=== PATIENT | male | born 1985 | race Hispanic/Latino ===

== ENCOUNTER 2018-02-16 06:48 | Emergency (ER) | payer BC, SELFPAY | END 2018-02-16 13:56 | disposition home or self-care (01) | LOC: ERS 06:48 | DX: L03.116 Cellulitis of left lower limb (principal); B35.3 Tinea pedis; F17.290 Nicotine dependence, other tobacco product, uncomplicated | CPT/HCPCS: 99283 ==

== ENCOUNTER 2019-04-02 06:58 | Emergency (ER) | payer BC, SELFPAY ==
[2019-04-02 07:37] LABS: #Basophils 0.1 thou/uL (0.0-0.2); #Eosinphils 0.4 thou/uL (0.0-0.7); #Monocytes 0.6 thou/uL (0.11-0.59); #Neutrophils 3.7 thou/uL (1.40-6.50); %Eosinophils 5.7 % (0.0-10.0); %Lymphocytes 38.1 % (21.0-51.0); %Monocytes 7.9 % (0.0-10.0); %Neutrophils 47.3 % (42.0-75.0); Hemoglobin 15.2 g/dL (14.0-18.0); Mean Corpuscular Hemoglobin 30.2 pg (27.0-31.0); Mean Corpuscular Volume 88.7 fL (78.0-98.0); Mean Platelet Volume 7.7 fL (7.4-10.4); Platelet Count 337 thou/uL (130-400); RBC Distribution Width 12.1 % (11.5-14.5); Red Blood Cell (RBC) Count 5.03 mill/uL (4.70-6.10); White Blood Cell (WBC) Count 7.8 thou/uL (4.8-10.8)
== END 2019-04-02 08:34 | disposition home or self-care (01) ==
LOC: ERS 06:58
DX: K62.5 Hemorrhage of anus and rectum (principal); F17.210 Nicotine dependence, cigarettes, uncomplicated
CPT/HCPCS: 85025; 99283

== ENCOUNTER 2020-06-02 12:18 | Inpatient (IN) | payer BC ==
[2020-06-02 14:32] LABS: Red Blood Cell (RBC) Count 4.81 mill/uL (4.70-6.10); White Blood Cell (WBC) Count 17.9 thou/uL (4.8-10.8)
[2020-06-02 14:33] LABS: %Lymphocytes 19.2 % (21.0-51.0); %Neutrophils 70.6 % (42.0-75.0); Hemoglobin 14.2 g/dL (14.0-18.0); Mean Corpuscular HGB CONC 32.5 g/dL (32.0-36.0); Mean Corpuscular Hemoglobin 29.6 pg (27.0-31.0); Mean Corpuscular Volume 91.1 fL (78.0-98.0); Mean Platelet Volume 7.7 fL (7.4-10.4); Platelet Count 369 thou/uL (130-400); RBC Distribution Width 12.5 % (11.5-14.5)
[2020-06-02 14:34] LABS: #Basophils 0.1 thou/uL (0.0-0.2); #Eosinphils 0.2 thou/uL (0.0-0.7); #Lymphocytes 3.4 thou/uL (1.20-3.40); #Monocytes 1.5 thou/uL (0.11-0.59); #Neutrophils 12.6 thou/uL (1.40-6.50); %Basophils 0.5 % (0.0-1.0); %Eosinophils 1.1 % (0.0-10.0); %Monocytes 8.6 % (0.0-10.0)
[2020-06-02 14:38] LABS: Albumin 4.3 g/dL (3.5-5.0)
[2020-06-02 14:39] LABS: Calcium 9.6 mg/dL (7.8-10.44); Chloride 100 mmol/L (98-107); Globulin 4.2 g/dL (2.4-3.5); Glucose 97 mg/dL (70-105); Potassium 4.2 mmol/L (3.5-5.1); Protein, Total 8.5 g/dL (6.0-8.3); Sodium 136 mmol/L (136-145)
[2020-06-02 14:40] LABS: ALT (SGPT) 39 U/L (8-55); AST (SGOT) 35 U/L (5-34); Alkaline Phosphatase 74 U/L (40-110); Anion Gap 14 mmol/L (10-20); BUN (Urea Nitrogen) 15 mg/dL (8.9-20.6); Bilirubin, Total 0.5 mg/dL (0.2-1.2); Calc. Creatinine Clearance 0 mL/min (70-130); Carbon Dioxide 26 mmol/L (22-29); Estimated GFR-MDRD 87
[2020-06-02] MEDS ORDERED: Iopamidol-370 76% 500 ML 1 ML ONE (15:17)
--- NOTE | 2020-06-02 16:15 | RAD ---
CHEST 1 VIEW: Date: 06/02/2020 INDICATION: History of bright red blood in toilet with fevers, chills, nausea, and fatigue. COMPARISON: Prior dated 04/21/2018. FINDINGS: Lungs are clear. Heart size is normal. No acute osseous abnormality is evident. IMPRESSION: No acute cardiopulmonary abnormality. POS: [facility]
[2020-06-02] MEDS ORDERED: Cefepime 2 GM VIAL ONE (17:40)
[2020-06-02] MEDS ORDERED: Morphine 4 MG/ML VIAL ONE ×2 (17:40→19:33)
[2020-06-02] MEDS ORDERED: Ondansetron PF 4 MG/2 ML Vial ONE ×2 (17:40→19:33)
[2020-06-02 17:56] LABS: Bilirubin Negative (Negative); Blood, Urine Negative (Negative); Clarity Clear (Clear); Glucose, Urine (Dipstick) 100 mg/dL (Negative); Ketone, Urine 20 mg/dL (Negative); Leukocyte Negative Leu/uL (Negative); Nitrite Negative (Negative); Protein, Urine (Dipstick) 10 mg/dL (Neg-Trace); Specific Gravity, Urine 1.031 (1.002-1.036)
[2020-06-02] MEDS ORDERED: Vancomycin 1.5 GRAM/300 ML BAG 1.5 GM in Premix Bag 1 BAG IVPB SCH (18:30)
--- NOTE | 2020-06-02 20:27 | CT ---
EXAM: ABDOMEN AND PELVIC CT SCAN WITH IV CONTRAST: 06/02/20 HISTORY: Blood in stool, fever, chills, nausea, fatigue. FINDINGS: The lung bases show no significant acute process. The visualized liver, gallbladder, pancreas, spleen , adrenal glands, are unremarkable. No renal calculus or acute obstruction. No evidence for large or small bowel obstruction. Normal appearing appendix. No abnormal fluid collection within the abdome n or pelvis. There are some minimally enlarged presacral lymph nodes. One to the right of midline rosaura sures 1.4 cm and another to the left of midline measures 0.9 cm short axis. There is evidence for a s mall left fat containing inguinal hernia. Minimal sigmoid colon diverticulosis without acute divertic ulitis. There is evidence for a heterogeneous poorly defined fluid collection which appears to be per irectal measuring approximately 2.6 x 3.5 cm in size concerning for a perirectal abscess. Please dejuan elate with physical exam. IMPRESSION: Somewhat poorly defined low attenuation focus in the perirectal region probably a perirectal abscess measuring 2.6 x 3.5 cm in size with some minimally enlarged presacral lymph nodes. Small left inguinal fat containing hernia. POS: [facility]
[2020-06-02] MEDS ORDERED: Ketorolac Tromethamine 30 MG/ML VIAL ONE (20:52)
[2020-06-02] MEDS ORDERED: Acetaminophen 650 MG Suppository PR PRN (23:18)
[2020-06-02] MEDS ORDERED: Acetaminophen 325 MG TAB PO PRN (23:18)
[2020-06-02] MEDS ORDERED: HYDROcodone/Acetaminophen 5/325 mg Tablet PO PRN (23:18)
[2020-06-02] MEDS ORDERED: Sodium Chloride 0.9% 1,000 ML IV SCH (23:30)
[2020-06-03] MEDS: HYDROcodone/Acetaminophen 5/325 mg Tablet PO PRN ×4 (01:22→20:28)
[2020-06-03] MEDS: Piperacillin/Tazobactam 3.375 GM in Sodium Chloride 0.9% 100 ML IVPB SCH ×4 (01:30→20:27)
[2020-06-03] MEDS: Sodium Chloride 0.9% 1,000 ML IV SCH ×4 (01:31→23:34)
[2020-06-03] MEDS: Acetaminophen 500 MG TAB PO SCH ×5 (02:09→22:38)
[2020-06-03 02:10] VITALS: BMI 37.1
[2020-06-03] MEDS: Morphine 4 MG/ML VIAL SLOW IVP PRN ×2 (03:26→07:41)
--- NOTE | 2020-06-03 04:55 | PDOC.HHP ---
Hospitalist HPI - History of Present Illness History of Present Illness: ADMISSION DATE: 06/02/2020 TIME OF ASSESSMENT: 2199 PRIMARY CARE PHYSICIAN: None CHIEF COMPLAINT: Rectal pain and hematochezia HPI: Patient presents to the emergency department with complaints of severe rectal discomfort associated with bright red blood per rectum that has been persisting for the last 3 days. Reports that on Friday he began to have diarrhea and thought he had a GI bug and upon having a bowel movement he noticed that his stools were loose and mixed with blood. He recalls straining with a bowel movement and had significant discomfort. Patient states since then the loose stools have persisted next with blood and the discomfort has become unbearable. He reports feeling generally aching and has noted feeling feverish at home. Denies having any issues with his stools in the past and has no underlying bowel conditions. Has not had any nausea or vomiting. Denies any drastic weight loss. No history of hemorrhoids. Has never undergone any colonoscopy. Patient admits to having occasional blood in the stool that has been painless for the last 2 to 3 months. He did not seek any medical attention for this. Currently the pain remains severe but seems to be tolerable as long as he does not move. Any movement of his lower body causes the pain to increase significantly. All other review of systems are negative. ED COURSE: In the emergency department the patient was noted to have a low-grade temp of 99. Blood pressure stable at 119/86. He had laboratory studies are notable for a white count of 17.9, hemoglobin 14.2, hematocrit 43.8, platelets 369. Neutrophils 70.6%. Sodium 136, potassium 4.2, BUN 15, creatinine 0.98, GFR 87, glucose 97, lactic acid 1.4. Total bilirubin 0.5, AST 35, ALT 39, alk phos 74, total protein 8.5. Urinalysis notable for glucose of 100, ketones 20, urobilinogen 4 otherwise unremarkable. Chest x-ray showed no acute cardiopulmonary abnormality. CT of the abdomen and pelvis demonstrated somewhat poorly defined low- attenuation focus in the perirectal region felt to represent a perirectal abscess measuring 2.6 x 3.5 cm with some minimally enlarged presacral lymph n odes. A small left inguinal fat-containing hernia present. Patient was given Zofran 4 mg IV for nausea. Received 1 L of normal saline. For his pain he was given 8 mg of morphine at 1748. He was started on IV antibiotics with vancomycin and cefepime. He was later given an additional 4 mg of Zofran at 1943. As well as another 8 mg of IV morphine at that time for his pain which she states did not help at all. This was followed by 50 mg of IV Toradol at 2100 Case was discussed with the surgical team who agreed to see the patient however requested that we admit him to her service. Patient confirmed he has no medical conditions or comorbidities. PAST MEDICAL HISTORY: None PAST SURGICAL HISTORY: None SOCIAL HISTORY: Patient denies any tobacco use alcohol consumption or drug use. He is well independent at baseline. Lives with his family. FAMILY HISTORY: Noncontributory ALLERGIES: No known drug allergies CURRENT MEDICATIONS: None. Hospitalist ROS - Medication Medications: Active Medications Generic Name Dose Route Start Last Admin Trade Name Freq PRN Reason Stop Dose Admin Acetaminophen 1,000 mg 06/02/20 23:45 06/03/20 02:09 Acetaminophen 500 Mg Tab PO Not Given Q6H DMITRY Hydrocodone Bitart/Acetaminophen 2 tab 06/02/20 23:18 06/03/20 01:22 Hydrocodone/Acetaminophen 5/325 Mg Tablet PO 2 tab Q4H PRN Administration Severe Pain (7-10) Piperacillin Sod/Tazobactam 100 mls @ 200 mls/hr 06/03/20 02:00 06/03/20 01:30 Sod 3.375 gm/ Sodium Chloride IVPB 100 mls 0200,0800,1400,2000 DMITRY Administration Sodium Chloride 1,000 mls @ 125 mls/hr 06/02/20 23:49 06/03/20 01:31 Normal Saline 0.9% IV 1,000 mls .Q8H DMITRY Administration Morphine Sulfate 4 mg 06/03/20 03:11 06/03/20 03:26 Morphine 4 Mg/Ml Vial SLOW IVP 4 mg Q4H PRN Administration Breakthrough Pain - Exam General Appearance: NAD, awake alert General - other findings: Vital signs temp 99.1, HR 85, BP 105/64, RR 17, O2 sat 97% on room air. Eye: PERRL ENT: normocephalic atraumatic, moist mucosa Neck: supple, symmetric, no lymphadenopathy Heart: RRR, normal peripheral pulses Respiratory: CTAB, no wheezes, no rales, no ronchi, normal chest expansion Gastrointestinal: soft, non-tender, non-distended, normal bowel sounds, no guarding, no rigidity Gastrointestinal - other findings: Rectal exam deferred per patient request Extremities: no edema Skin: normal turgor, no lesions, no rashes Neurological: cranial nerve grossly intact, no weakness Musculoskeletal: normal tone, normal strength, no muscle wasting Psychiatric: normal affect, normal behavior, A&O x 3 Hospitalist Results - Labs Result Diagrams: 06/02/20 13:52 06/02/20 13:52 Lab results: WBC 17.9 thou/uL (4.8-10.8) H 06/02/20 13:52 Hgb 14.2 g/dL (14.0-18.0) 06/02/20 13:52 Hct 43.8 % (42.0-52.0) 06/02/20 13:52 MCV 91.1 fL (78.0-98.0) 06/02/20 13:52 Plt Count 369 thou/uL (130-400) 06/02/20 13:52 Neutrophils % 70.6 % (42.0-75.0) 06/02/20 13:52 Sodium 136 mmol/L (136-145) 06/02/20 13:52 Potassium 4.2 mmol/L (3.5-5.1) 06/02/20 13:52 Chloride 100 mmol/L (98-107) 06/02/20 13:52 Carbon Dioxide 26 mmol/L (22-29) 06/02/20 13:52 BUN 15 mg/dL (8.9-20.6) 06/02/20 13:52 Creatinine 0.98 mg/dL (0.7-1.3) 06/02/20 13:52 Glucose 97 mg/dL (70-105) 06/02/20 13:52 Lactic Acid 1.4 mmol/L (0.5-2.2) 06/02/20 15:59 Calcium 9.6 mg/dL (7.8-10.44) 06/02/20 13:52 Total Bilirubin 0.5 mg/dL (0.2-1.2) 06/02/20 13:52 AST 35 U/L (5-34) H 06/02/20 13:52 ALT 39 U/L (8-55) 06/02/20 13:52 Alkaline Phosphatase 74 U/L (40-110) 06/02/20 13:52 Serum Total Protein 8.5 g/dL (6.0-8.3) H 06/02/20 13:52 Albumin 4.3 g/dL (3.5-5.0) 06/02/20 13:52 Urine Ketones 20 mg/dL (Negative) A 06/02/20 17:30 Urine Blood Negative (Negative) 06/02/20 17:30 Urine Nitrite Negative (Negative) 06/02/20 17:30 Ur Leukocyte Esterase Negative Saniya/uL (Negative) 06/02/20 17:30 - Radiology Interpretation CT scan - abdomen Status: report reviewed by ak Hospitalist H&P A/P - Problem (1) Perirectal abscess Code(s): K61.1 - RECTAL ABSCESS Status: Acute (2) Rectal bleeding Code(s): K62.5 - HEMORRHAGE OF ANUS AND RECTUM Status: Acute (3) Diarrhea Code(s): R19.7 - DIARRHEA, UNSPECIFIED Status: Acute (4) Nausea Code(s): R11.0 - NAUSEA Status: Acute (5) Rectal pain Code(s): K62.89 - OTHER SPECIFIED DISEASES OF ANUS AND RECTUM Status: Acute - Plan Plan: Continue IV antibiotics Keep NPO Awaiting surgical review Monitor H/H. BP low due to high-dose morphine IV fluids ordered. Monitor BP. Will try Hydrocodone for pain. CODE STATUS FULL GI Prophylaxis with Famotidine DVT Prophylaxis: Mechanical SCDs.
[2020-06-03] MEDS ORDERED: Cefepime 2 GM in Sodium Chloride 0.9% 100 ML IVPB SCH (06:00)
--- NOTE | 2020-06-03 08:04 | CON ---
DATE OF CONSULTATION: 06/02/2020 SURGEON: Dr. Velasco. HISTORY OF PRESENT ILLNESS: The patient is a 34-year-old male, who presented to the emergency department after 3 days of perirectal pain. The patient reports 3 days ago, he started having pain and a little bit of blood when he had a bowel movement. He reports that earlier today, he had fever and chills as well as a headache. He denies any purulent output. He denies chest pain, shortness of breath, abdominal pain, nausea, vomiting, dysuria, or frequency. The patient's last bowel movement was the morning of admission. REVIEW OF SYSTEMS: All additional 10-point review of systems negative except as indicated above. PAST MEDICAL HISTORY: None. PAST SURGICAL HISTORY: None. SOCIAL HISTORY: The patient lives at home with his family. He drinks a couple of beers about once a month. He smokes about half a pack of cigarettes over a month's time. He denies any drug use. MEDICATIONS: None. ALLERGIES: NO KNOWN DRUG ALLERGIES. PHYSICAL EXAMINATION: VITAL SIGNS: Temperature 99.0, pulse 76, respirations 22, oxygen saturation 99% on room air, blood pressure 106/67. GENERAL: A well-appearing young male, lying in bed on his right side with no signs of acute distress. PULMONARY: Equal chest rise and fall. Clear breath sounds bilaterally. No signs of acute respiratory distress. CARDIAC: Regular rate and rhythm. GASTROINTESTINAL: Soft, nontender, nondistended. EXTREMITIES: 2+ pulses in all extremities. Gross motor and sensation intact. No significant swelling noted. : No signs of trauma. RECTAL: Normal rectal exam with no blood or pus output. There is tenderness superiorly to the rectum, but with no signs of abscess or abnormalities. No discharge has been noted. NEUROLOGIC: GCS is 15. LABORATORY FINDINGS: White count 17.9, hemoglobin 14.2, hematocrit 43.8, platelets 269. Sodium 136, potassium 4.2, chloride 100, bicarb 26, BUN 15, creatinine 0.98, glucose 97, lactic acid 1.7, total bilirubin 0.7, AST 35, ALT 39, alkaline phosphatase 74. UA is negative for infection and blood. DIAGNOSTIC FINDINGS: Chest x-ray demonstrates no acute cardiopulmonary abnormalities. CT scan of the abdomen and pelvis demonstrates a somewhat poorly defined low-attenuation foci in the perirectal region, probably a perirectal abscess, measuring 2.6 x 3.5 cm in size with some minimal enlarged presacral lymph nodes, small left inguinal fat containing hernia. ASSESSMENT: Perirectal abscess. RECOMMENDATIONS: Dr. Velasco plans to take the patient to the OR for I and D of a perirectal abscess. Dr. Velasco is to evaluate the patient in the morning, and discuss risks versus benefits. We will continue n.p.o. with IV fluids and Zosyn only at this time. Continue pain control. Monitor for signs and symptoms of sepsis. Job ID: [id number]
[2020-06-03] MEDS: Polyethylene Glycol 3350 17 GM Packet PO SCH (08:28)
[2020-06-03] MEDS: Famotidine 20 MG TAB PO SCH ×2 (08:28→20:28)
[2020-06-03] MEDS: Senokot S 8.6-50 MG TAB PO SCH ×2 (08:28→20:28)
[2020-06-03 08:39] LABS: SARS-CoV-2 MS2 Positive; SARS-CoV-2 N Gene Negative; SARS-CoV-2 S Gene Negative; SARS-CoV-2 by NAA Not Detected (NotDetected); SARS-CoV-2 orf1ab Negative
[2020-06-03] MEDS ORDERED: Vancomycin 1.5 GRAM/300 ML BAG 1.5 GM in Premix Bag 1 BAG IVPB SCH (09:00)
[2020-06-03] MEDS ORDERED: Morphine 2 MG/ML VIAL SLOW IVP SCH (09:45)
[2020-06-03] MEDS ORDERED: Sodium Chloride 0.9% 500 ML IV SCH (10:45)
[2020-06-03] MEDS: Ketorolac Tromethamine 30 MG/ML VIAL IVP SCH ×3 (10:51→23:31)
[2020-06-03] MEDS: traMADol HCl 50 MG TAB PO SCH ×3 (10:51→21:57)
--- NOTE | 2020-06-03 11:41 | PDOC.HOSPP ---
- Subjective Encounter Date: 06/03/20 Encounter Time: 08:40 Subjective: Patient is seen for follow-up on rectal pain and hematochezia. He states he still having significant pain even with the medications he is receiving. He is scheduled for an I&D this afternoon. Denies any further bowel movements. Remained afebrile last night with stable vital signs. - Objective Vital Signs & Weight: Vital Signs (12 hours) Temp Pulse Resp BP Pulse Ox 06/03/20 08:26 95 06/03/20 07:56 98.7 F 85 18 100/63 95 06/03/20 04:31 99.1 F 94 19 105/64 95 06/03/20 01:10 99 F 76 22 H 106/67 99 Weight Weight 230 lb I&O: 06/02/20 06/03/20 06/04/20 06:59 06:59 06:59 Intake Total 750 Output Total 150 Balance 600 Result Diagrams: 06/02/20 13:52 06/02/20 13:52 Hospitalist ROS - Medication Medications: Active Medications Generic Name Dose Route Start Last Admin Trade Name Freq PRN Reason Stop Dose Admin Acetaminophen 1,000 mg 06/02/20 23:45 06/03/20 05:26 Acetaminophen 500 Mg Tab PO Not Given Q6H DMITRY Hydrocodone Bitart/Acetaminophen 2 tab 06/02/20 23:18 06/03/20 05:24 Hydrocodone/Acetaminophen 5/325 Mg Tablet PO 2 tab Q4H PRN Administration Severe Pain (7-10) Famotidine 20 mg 06/03/20 09:00 06/03/20 08:28 Famotidine 20 Mg Tab PO 20 mg BID DMITRY Administration Piperacillin Sod/Tazobactam 100 mls @ 200 mls/hr 06/03/20 02:00 06/03/20 08:28 Sod 3.375 gm/ Sodium Chloride IVPB 100 mls 0200,0800,1400,2000 DMITRY Administration Sodium Chloride 1,000 mls @ 125 mls/hr 06/02/20 23:49 06/03/20 08:28 Normal Saline 0.9% IV 1,000 mls .Q8H DMITRY Administration Ketorolac Tromethamine 30 mg 06/03/20 10:45 06/03/20 10:51 Ketorolac Tromethamine 30 Mg/Ml Vial IVP 06/08/20 10:46 30 mg NOW DMITRY Administration Morphine Sulfate 4 mg 06/03/20 03:11 06/03/20 07:41 Morphine 4 Mg/Ml Vial SLOW IVP 4 mg Q4H PRN Administration Breakthrough Pain Morphine Sulfate 2 mg 06/03/20 09:45 06/03/20 10:30 Morphine 2 Mg/Ml Vial SLOW IVP 06/03/20 11:45 Not Given NOW DMITRY Polyethylene Glycol 17 gm 06/03/20 09:00 06/03/20 08:28 Polyethylene Glycol 3350 17 Gm Packet PO Not Given DAILY DMITRY Senna/Docusate Sodium 2 tab 06/03/20 09:00 06/03/20 08:28 Senokot S 8.6-50 Mg Tab PO 2 tab BID DMITRY Administration Tramadol HCl 100 mg 06/03/20 10:45 06/03/20 10:51 Tramadol Hcl 50 Mg Tab PO 100 mg Q6H DMITRY Administration - Exam General Appearance: NAD, awake alert General - other findings: Currently in pain after pain medication ENT: normocephalic atraumatic Neck: supple Heart: RRR, no murmur, no gallops, no rubs, normal peripheral pulses Respiratory: CTAB, no wheezes, no rales, no ronchi, normal chest expansion Gastrointestinal: soft, non-tender, non-distended, normal bowel sounds Musculoskeletal: normal tone, no muscle wasting Psychiatric: normal affect, normal behavior, A&O x 3 Hosp A/P (1) Perirectal abscess Code(s): K61.1 - RECTAL ABSCESS Status: Acute (2) Rectal bleeding Code(s): K62.5 - HEMORRHAGE OF ANUS AND RECTUM Status: Acute (3) Rectal pain Code(s): K62.89 - OTHER SPECIFIED DISEASES OF ANUS AND RECTUM Status: Acute - Plan Continue IV antibiotics and IV fluids Keep n.p.o. until after surgery this afternoon Await I&D this afternoon and further surgical team recommendations Continue to monitor H/H Continue pain control
[2020-06-03] MEDS ORDERED: Dexamethasone 20 MG/5 ML VIAL ONE (11:59)
[2020-06-03] MEDS ORDERED: PROPOFOL 200 MG/20 ML VIAL ONE (11:59)
[2020-06-03] MEDS ORDERED: Rocuronium Bromide 10 MG/ML (10ML VIAL) ONE (11:59)
[2020-06-03] MEDS ORDERED: Lidocaine 1% PF 5 ML VIAL ONE (11:59)
[2020-06-03] MEDS ORDERED: Glycopyrrolate 0.2 MG/ML 5 ML SYRINGE ONE (11:59)
[2020-06-03] MEDS ORDERED: Ondansetron PF 4 MG/2 ML Vial ONE (11:59)
[2020-06-03] MEDS ORDERED: Ketorolac Tromethamine 30 MG/ML VIAL ONE (11:59)
[2020-06-03 12:20] LABS: #Basophils 0.1 thou/uL (0.0-0.2); #Eosinphils 0.5 thou/uL (0.0-0.7); #Lymphocytes 3.2 thou/uL (1.20-3.40); #Monocytes 1.7 thou/uL (0.11-0.59); #Neutrophils 12.8 thou/uL (1.40-6.50); %Basophils 0.5 % (0.0-1.0); %Eosinophils 2.5 % (0.0-10.0); %Lymphocytes 17.6 % (21.0-51.0); %Monocytes 9.5 % (0.0-10.0); %Neutrophils 69.9 % (42.0-75.0); Hemoglobin 12.6 g/dL (14.0-18.0); Mean Corpuscular HGB CONC 33.7 g/dL (32.0-36.0); Mean Corpuscular Hemoglobin 30.9 pg (27.0-31.0); Mean Corpuscular Volume 91.6 fL (78.0-98.0); Mean Platelet Volume 7.3 fL (7.4-10.4); Platelet Count 315 thou/uL (130-400); RBC Distribution Width 12.2 % (11.5-14.5); Red Blood Cell (RBC) Count 4.08 mill/uL (4.70-6.10); White Blood Cell (WBC) Count 18.3 thou/uL (4.8-10.8)
[2020-06-03 12:40] LABS: Phosphorus 3.4 mg/dL (2.3-4.7)
[2020-06-03 12:42] LABS: Anion Gap 12 mmol/L (10-20); BUN (Urea Nitrogen) 11 mg/dL (8.9-20.6); Calc. Creatinine Clearance 177 mL/min (70-130); Calcium 8.5 mg/dL (7.8-10.44); Carbon Dioxide 23 mmol/L (22-29); Chloride 106 mmol/L (98-107); Estimated GFR-MDRD Greater than 90; Glucose 91 mg/dL (70-105); Magnesium 1.7 mg/dL (1.6-2.6); Sodium 137 mmol/L (136-145)
[2020-06-03] MEDS ORDERED: Midazolam HCl 2 mg/2 ml Vial ONE (15:13)
[2020-06-03] MEDS ORDERED: Fentanyl 100 MCG/2 ML VIAL ONE ×2 (15:13→15:18)
[2020-06-03] MEDS ORDERED: Promethazine HCl 25 MG/ML VIAL SLOW IVP PRN (15:14)
[2020-06-03] MEDS ORDERED: Ondansetron HCl/PF 4 MG/2 ML Vial IVP PRN (15:14)
[2020-06-03] MEDS ORDERED: Promethazine HCl 25 MG/ML VIAL IM PRN (15:14)
[2020-06-03] MEDS ORDERED: EPINEPHrine 1 MG/ML AMP ONE (15:28)
[2020-06-03] MEDS ORDERED: Bupivacaine 0.25% HCL 30 ML VIAL ONE (15:28)
[2020-06-03] MEDS ORDERED: SUGAMMADEX SODIUM 500 MG/5 ML VIAL ONE (16:40)
--- NOTE | 2020-06-03 17:14 | EKG ---
Test Reason : Blood Pressure : / mmHG Vent. Rate : 102 BPM Atrial Rate : 102 BPM P-R Int : 134 ms QRS Dur : 092 ms QT Int : 330 ms P-R-T Axes : 011 -24 002 degrees QTc Int : 430 ms Sinus tachycardia Incomplete right bundle branch block Moderate voltage criteria for LVH, may be normal variant Borderline ECG Confirmed by DELIA ALFARO DO ([id number]), editor producer NOEMI RUELAS ([id number]) on 06/03/2020 5:13:35 PM Referred By: Confirmed By:DELIA ALFARO DO
--- NOTE | 2020-06-03 17:20 | OP ---
DATE OF PROCEDURE: 06/03/2020 PREOPERATIVE DIAGNOSIS: Left perirectal/perineal abscess. POSTOPERATIVE DIAGNOSIS: Left perirectal/perineal abscess. PROCEDURE PERFORMED: Incision and drainage of left perirectal abscess. ANESTHESIA: General endotracheal. ESTIMATED BLOOD LOSS: 5 mL. Sponge and instrument counts were verified as correct. COMPLICATIONS: None apparent at the time of operation. INDICATIONS FOR OPERATION: A 34-year-old man presented with several day history of worsening perirectal pain. Clinical and radiographic examination were consistent with left perirectal/perineal abscess which required incision and drainage. The patient is brought to the operating room for an incision and drainage of the said abscess. DESCRIPTION OF PROCEDURE: Informed consent obtained from the patient, who was brought to the operating room, placed in supine position. Following general anesthesia, the patient was placed in a prone viviane-knife position. We then were able to palpate the medial aspect of the left perirectal/perineal area. Using a finder needle, an abscess cavity is located. The skin overlying this was then incised and abscess cavity was entered. Sample of this pus was sent off for microbiology. The abscess cavity was then evacuated using Endo suction catheter. We were able to bluntly debride necrotic tissues which were evacuated with suction. Abscess cavity was then irrigated with saline and then packed with 0.5 inch iodoform gauze. We placed a 4x4, ABD pad and mesh pants. The patient tolerated the procedure without any apparent complication and was returned to recovery room in satisfactory condition. Job ID: [id number]
[2020-06-04] MEDS: Piperacillin/Tazobactam 3.375 GM in Sodium Chloride 0.9% 100 ML IVPB SCH ×4 (01:44→20:12)
[2020-06-04] MEDS: traMADol HCl 50 MG TAB PO SCH ×4 (04:59→21:42)
[2020-06-04] MEDS: Acetaminophen 500 MG TAB PO SCH ×3 (05:00→17:25)
[2020-06-04] MEDS: Ketorolac Tromethamine 30 MG/ML VIAL IVP SCH ×4 (05:00→17:26)
--- NOTE | 2020-06-04 05:02 | PRG ---
DATE OF SERVICE: 06/03/2020 SUBJECTIVE: The patient was seen this evening during rounds. He was lying in bed on his right side, resting comfortably and asleep with no signs of acute distress. Nursing reported no acute events. OBJECTIVE: VITAL SIGNS: Temperature 97.9, pulse 66, respirations 18, oxygen saturation 93% on room air, blood pressure 100/66. GENERAL: Well-appearing middle-aged male, lying in bed, resting comfortably and asleep with no signs of acute distress. PULMONARY: Equal chest rise and fall. No signs of acute respiratory distress. ASSESSMENT: Postop day 0, status post incision and drainage of left perirectal abscess. PLAN: Continue current regular diet. Continue IV fluids. Continue IV antibiotics. Ambulating and pulmonary hygiene tomorrow. The patient will likely be discharged home when he can tolerate his diet and switch to oral antibiotics. Job ID: [id number]
[2020-06-04 05:55] LABS: #Monocytes 0.2 thou/uL (0.11-0.59); #Neutrophils 9.9 thou/uL (1.40-6.50); %Basophils 0.1 % (0.0-1.0); %Eosinophils 0.1 % (0.0-10.0); %Lymphocytes 9.3 % (21.0-51.0); %Monocytes 1.8 % (0.0-10.0); %Neutrophils 88.8 % (42.0-75.0); Hemoglobin 12.6 g/dL (14.0-18.0); Mean Corpuscular HGB CONC 33.7 g/dL (32.0-36.0); Mean Corpuscular Hemoglobin 30.8 pg (27.0-31.0); Mean Corpuscular Volume 91.6 fL (78.0-98.0); Mean Platelet Volume 7.8 fL (7.4-10.4); Platelet Count 323 thou/uL (130-400); RBC Distribution Width 12.3 % (11.5-14.5); Red Blood Cell (RBC) Count 4.07 mill/uL (4.70-6.10); White Blood Cell (WBC) Count 11.2 thou/uL (4.8-10.8)
[2020-06-04 06:17] LABS: Anion Gap 13 mmol/L (10-20); BUN (Urea Nitrogen) 10 mg/dL (8.9-20.6); Calc. Creatinine Clearance 173 mL/min (70-130); Calcium 8.7 mg/dL (7.8-10.44); Carbon Dioxide 23 mmol/L (22-29); Chloride 102 mmol/L (98-107); Estimated GFR-MDRD Greater than 90; Glucose 159 mg/dL (70-105); Magnesium 1.7 mg/dL (1.6-2.6); Phosphorus 4.1 mg/dL (2.3-4.7); Potassium 4.4 mmol/L (3.5-5.1); Sodium 134 mmol/L (136-145)
[2020-06-04] MEDS: Polyethylene Glycol 3350 17 GM Packet PO SCH (09:14)
[2020-06-04] MEDS: Famotidine 20 MG TAB PO SCH ×2 (09:14→20:12)
[2020-06-04] MEDS: Sodium Chloride 0.9% 1,000 ML IV SCH ×2 (09:15→16:13)
[2020-06-04] MEDS: Senokot S 8.6-50 MG TAB PO SCH ×2 (09:53→20:11)
--- NOTE | 2020-06-04 11:36 | PDOC.HOSPP ---
- Subjective Encounter Date: 06/04/20 Encounter Time: 09:30 Subjective: Patient is seen today for follow-up on a perirectal abscess status post I&D yesterday. Patient states his pain has greatly decreased since surgery yesterday. He is not needing any additional analgesics other than his scheduled Tylenol currently. He is currently preparing to get in the shower and then have his sitz bath. - Objective Vital Signs & Weight: Vital Signs (12 hours) Temp Pulse Resp BP BP Pulse Ox 06/04/20 09:14 94 L 06/04/20 07:47 97.7 F 66 15 121/77 94 L 06/04/20 04:27 97.4 F L 68 20 121/64 98 06/04/20 00:33 97.9 F 66 18 100/66 93 L Weight Weight 230 lb I&O: 06/03/20 06/04/20 06/05/20 06:59 06:59 06:59 Intake Total 3050 Output Total 1250 Balance 1800 Result Diagrams: 06/04/20 05:07 06/04/20 05:07 Hospitalist ROS - Medication Medications: Active Medications Generic Name Dose Route Start Last Admin Trade Name Freq PRN Reason Stop Dose Admin Acetaminophen 1,000 mg 06/02/20 23:45 06/04/20 11:20 Acetaminophen 500 Mg Tab PO 1,000 mg Q6H DMITRY Administration Hydrocodone Bitart/Acetaminophen 2 tab 06/02/20 23:18 06/03/20 20:28 Hydrocodone/Acetaminophen 5/325 Mg Tablet PO 2 tab Q4H PRN Administration Severe Pain (7-10) Famotidine 20 mg 06/03/20 09:00 06/04/20 09:14 Famotidine 20 Mg Tab PO 20 mg BID DMITRY Administration Piperacillin Sod/Tazobactam 100 mls @ 200 mls/hr 06/03/20 02:00 06/04/20 09:13 Sod 3.375 gm/ Sodium Chloride IVPB 100 mls 0200,0800,1400,2000 DMITRY Administration Sodium Chloride 1,000 mls @ 125 mls/hr 06/02/20 23:49 06/04/20 09:15 Normal Saline 0.9% IV 1,000 mls .Q8H DMITRY Administration Ketorolac Tromethamine 30 mg 06/03/20 10:45 06/04/20 09:50 Ketorolac Tromethamine 30 Mg/Ml Vial IVP 06/08/20 10:46 Not Given NOW [facility] Ketorolac Tromethamine 15 mg 06/03/20 18:00 06/04/20 11:20 Ketorolac Tromethamine 30 Mg/Ml Vial IVP 06/04/20 18:01 15 mg Q6HR DMITRY Administration Morphine Sulfate 4 mg 06/03/20 03:11 06/03/20 07:41 Morphine 4 Mg/Ml Vial SLOW IVP 4 mg Q4H PRN Administration Breakthrough Pain Polyethylene Glycol 17 gm 06/03/20 09:00 06/04/20 09:14 Polyethylene Glycol 3350 17 Gm Packet PO 17 gm DAILY DMITRY Administration Senna/Docusate Sodium 2 tab 06/03/20 09:00 06/04/20 09:53 Senokot S 8.6-50 Mg Tab PO 2 tab BID DMITRY Administration Tramadol HCl 100 mg 06/03/20 10:45 06/04/20 09:53 Tramadol Hcl 50 Mg Tab PO 100 mg Q6H DMITRY Administration - Exam General Appearance: NAD, awake alert Heart: RRR, no murmur, no gallops, no rubs, normal peripheral pulses Respiratory: CTAB, no wheezes, no rales, no ronchi Gastrointestinal: soft, non-tender, normal bowel sounds, distended (passing flatus) Extremities: no edema Hosp A/P (1) Perirectal abscess Code(s): K61.1 - RECTAL ABSCESS Status: Acute (2) Rectal bleeding Code(s): K62.5 - HEMORRHAGE OF ANUS AND RECTUM Status: Acute (3) Rectal pain Code(s): K62.89 - OTHER SPECIFIED DISEASES OF ANUS AND RECTUM Status: Acute - Plan Continue IV antibiotics and IV fluids Patient tolerating regular diet Surgical team still following patient, we appreciate the recommendations Continue to monitor H/H Continue pain control, has not needed additional analgesics as the scheduled Tylenol is working to control his pain Wound care team following patient
[2020-06-04] MEDS: HYDROcodone/Acetaminophen 5/325 mg Tablet PO PRN (13:54)
[2020-06-04] MEDS: Cepastat Lozenges 1 LOZ PO PRN (14:09)
[2020-06-04] MEDS: Morphine 4 MG/ML VIAL SLOW IVP PRN (21:09)
[2020-06-05] MEDS: Acetaminophen 500 MG TAB PO SCH ×3 (02:45→11:18)
[2020-06-05] MEDS: Piperacillin/Tazobactam 3.375 GM in Sodium Chloride 0.9% 100 ML IVPB SCH ×2 (02:46→08:35)
--- NOTE | 2020-06-05 03:40 | PRG ---
DATE OF SERVICE: 06/04/2020 SUBJECTIVE: The patient was seen this evening during rounds. He was lying on his back, resting comfortably with no signs of acute distress. He reported his pain is much better controlled postoperatively. He did have a small bowel movement today. We discussed how to keep his wound clean. OBJECTIVE: VITAL SIGNS: Temperature 97.6, pulse 78, respirations 18, oxygen saturation 96% on room air, and blood pressure 112/78. GENERAL: Well-appearing young male, lying in bed with no signs of acute distress. PULMONARY: Equal chest rise and fall. No signs of acute respiratory distress. ASSESSMENT: Postop day #1, status post incision and drainage of left perirectal abscess. PLAN: Continue current regular diet. Continue current antibiotics. Repeat blood work in the morning, CBC. The patient's family to have education by Wound Care for wound management and then the patient can be discharged. Job ID: [id number]
[2020-06-05] MEDS: Cepastat Lozenges 1 LOZ PO PRN (05:17)
[2020-06-05 05:29] LABS: #Eosinphils 0.1 thou/uL (0.0-0.7); #Monocytes 1.2 thou/uL (0.11-0.59); #Neutrophils 10.7 thou/uL (1.40-6.50); %Basophils 0.3 % (0.0-1.0); %Eosinophils 0.3 % (0.0-10.0); %Neutrophils 71.4 % (42.0-75.0); Hemoglobin 10.9 g/dL (14.0-18.0); Mean Corpuscular HGB CONC 32.4 g/dL (32.0-36.0); Mean Corpuscular Hemoglobin 29.6 pg (27.0-31.0); Mean Corpuscular Volume 91.2 fL (78.0-98.0); Mean Platelet Volume 7.7 fL (7.4-10.4); Platelet Count 340 thou/uL (130-400); RBC Distribution Width 12.4 % (11.5-14.5); Red Blood Cell (RBC) Count 3.69 mill/uL (4.70-6.10)
[2020-06-05] MEDS: traMADol HCl 50 MG TAB PO SCH ×2 (06:07→11:19)
[2020-06-05] MEDS: Polyethylene Glycol 3350 17 GM Packet PO SCH (08:36)
[2020-06-05] MEDS: Famotidine 20 MG TAB PO SCH (08:36)
[2020-06-05] MEDS: Senokot S 8.6-50 MG TAB PO SCH (08:36)
[2020-06-05] MEDS: HYDROcodone/Acetaminophen 5/325 mg Tablet PO PRN (08:42)
--- NOTE | 2020-06-05 10:01 | PDOC.DS.DS ---
Provider - Provider Date of Admission: 06/02/20 21:21 Date of Discharge: 06/05/20 Admitting Provider: Haydee Horan MD Primary Care Physician: LONDON HOLT Course - Hospital Course Hospital Course: HISTORY OF PRESENT ILLNESS ON ADMISSION Patient presents to the emergency department with complaints of severe rectal discomfort associated with bright red blood per rectum that has been persisting for the last 3 days. Reports that on Friday he began to have diarrhea and thought he had a GI bug and upon having a bowel movement he noticed that his stools were loose and mixed with blood. He recalls straining with a bowel movement and had significant discomfort. Patient states since then the loose stools have persisted next with blood and the discomfort has become unbearable. He reports feeling generally aching and has noted feeling feverish at home. Denies having any issues with his stools in the past and has no underlying bowel conditions. Has not had any nausea or vomiting. Denies any drastic weight loss. No history of hemorrhoids. Has never undergone any colonoscopy. Patient admits to having occasional blood in the stool that has been painless for the last 2 to 3 months. He did not seek any medical attention for this. In the emergency department the patient was noted to have a low-grade temp of 99. Blood pressure stable at 119/86. He had laboratory studies are notable for a white count of 17.9, hemoglobin 14.2, hematocrit 43.8, platelets 369. Neutrophils 70.6%. Sodium 136, potassium 4.2, BUN 15, creatinine 0.98, GFR 87, glucose 97, lactic acid 1.4. Total bilirubin 0.5, AST 35, ALT 39, alk phos 74, total protein 8.5. Urinalysis notable for glucose of 100, ketones 20, urobilinogen 4 otherwise unremarkable. Chest x-ray showed no acute cardiopulmonary abnormality. CT of the abdomen and pelvis demonstrated somewhat poorly defined low-attenuation focus in the perirectal region felt to represent a perirectal abscess measuring 2.6 x 3.5 cm with some minimally enlarged presacral lymph nodes. A small left inguinal fat-containing hernia present. Patient was given Zofran, normal saline, morphine, vancomycin and cefepime. HOSPITAL COURSE Mr. Guy is a 34-year-old male who presented to the emergency room on 06/02/2020 for rectal pain and bleeding, found to have perirectal abscess on CT scan measuring 2.6 x 3.5 cm with minimally enlarged presacral lymph nodes. Patient underwent incision and drainage on 06/03/[address] Velasco. Patient tolerated procedure well with no complications. Patient was treated with IV Zosyn. Blood culture showed no growth to date. Wound cultures are still pending but preliminary results show gram-positive and gram-negative bacteria. Patient remained afebrile and his pain much improved since surgery. Wound was packed and wound care performed teaching for patient to continue to pack wound for the next week. Patient's white blood cell count downtrending from 17.9 on admission now to 15.0. Patient remains afebrile with normal vital signs. Patient was determined to be medically safe for discharge. Will be sent home on p.o. antibiotics, Augmentin twice daily for 5 days, as well as tramadol for pain. Patient will need to follow-up with his primary care provider in 1 week for repeat CBC as well as . Patient instructed to return to emergency room if he develops any new or worsening or concerning symptoms. Pertinent Studies: ABDOMEN AND PELVIC CT SCAN WITH IV CONTRAST: 06/02/20 HISTORY: Blood in stool, fever, chills, nausea, fatigue. FINDINGS: The lung bases show no significant acute process. The visualized liver, gallbladder, pancreas, spleen, adrenal glands, are unremarkable. No renal calculus or acute obstruction. No evidence for large or small bowel obstruction. Normal appearing appendix. No abnormal fluid collection within the abdomen or pelvis. There are some minimally enlarged presacral lymph nodes. One to the right of midline measures 1.4 cm and another to the left of midline measures 0.9 cm short axis. There is evidence for a small left fat containing inguinal hernia. Minimal sigmoid colon diverticulosis without acute diverticulitis. There is evidence for a heterogeneous poorly defined fluid collection which appears to be perirectal measuring approximately 2.6 x 3.5 cm in size concerning for a perirectal abscess. Please correlate with physical exam. IMPRESSION: Somewhat poorly defined low attenuation focus in the perirectal region probably a perirectal abscess measuring 2.6 x 3.5 cm in size with some minimally enlarged presacral lymph nodes. Small left inguinal fat containing hernia. Dictated By: NIYAH LEE Signed By: NIYAH EIKENHORST Electr onically signed: 06/02/2020 8:33:37 PM CHEST 1 VIEW: Date: 06/02/2020 INDICATION: History of bright red blood in toilet with fevers, chills, nausea, and fatigue. COMPARISON: Prior dated 04/21/2018. FINDINGS: Lungs are clear. Heart size is normal. No acute osseous abnormality is evident. IMPRESSION: No acute cardiopulmonary abnormality. Dictated By: ABIGAIL ANGELES Signed By: ABIGAIL ANGELES Electronically signed: 06/02/2020 4:29:37 PM Resuscitation Status: 06/02/20 23:18 Resuscitation Status Routine Co-Sign Provider: Resuscitation Status: FULL: Full Resuscitation - Labs Lab Results: 06/05/20 04:55 06/04/20 05:07 Abnormal Lab Results - Last 48 hrs 06/03/20 12:07: WBC 18.3 H, RBC 4.08 L, Hgb 12.6 L, Hct 37.4 L, MPV 7.3 L, Lymphocytes % 17.6 L, Neutrophils # 12.8 H, Monocytes # 1.7 H 06/04/20 05:07: Sodium 134 L 06/04/20 05:07: WBC 11.2 H, RBC 4.07 L, Hgb 12.6 L, Hct 37.3 L, Neutrophils % 88.8 H, Lymphocytes % 9.3 L, Neutrophils # 9.9 H, Lymphocytes # 1.0 L 06/05/20 04:55: WBC 15.0 H, RBC 3.69 L, Hgb 10.9 L, Hct 33.6 L, Lymphocytes % 20.0 L, Neutrophils # 10.7 H, Monocytes # 1.2 H Microbiology - Entire Visit 06/03/20 14:09 Perirectal - Abscess Bacterial Culture - Preliminary Presumptive Escherichia coli Gram Negative Brant 06/03/20 14:09 Perirectal - Abscess Anaerobic Culture - Preliminary 06/02/20 15:59 Venous blood - Right Arm Blood Culture - Preliminary NO GROWTH AT 48 HOURS 06/02/20 15:59 Venous blood - Left Arm Blood Culture - Preliminary NO GROWTH AT 48 HOURS - Physical Exam Vitals: Vital Signs (12 hours) Temp Pulse Resp BP BP Pulse Ox 06/05/20 08:08 97.9 F 63 18 118/75 96 06/05/20 04:30 97.8 F 65 18 115/70 97 06/05/20 00:00 97.6 F 78 18 112/78 96 Weight Weight 230 lb Physical Exam: The patient was seen and examined on the day of discharge. General appearance no acute distress, awake alert Normocephalic atraumatic Regular rate and rhythm, no murmur no rubs or gallops, normal peripheral pulses Clear to auscultation bilaterally no wheezes rales or rhonchi Abdomen soft nontender with normal active bowel sounds nondistended Rectum with packing in place, dressing clean dry intact Extremities with no edema Problem - Discharge Plan Plan of Treatment: We will continue outpatient antibiotics Augmentin 875 twice daily p.o. for 5 days. Tramadol 100 mg nightly as needed for severe pain. Patient will follow up with primary care provider in 1 week for follow-up CBC. Patient will also follow-up with surgical team Dr. Velasco. Patient seen and evaluated day of discharge. Case discussed with attending physician Dr. Zamarripa who is in agreement with assessment and plan. Plan - Discharge Medications Prescriptions: Amoxicillin/Potassium Clav [Augmentin] 875 mg PO BID 5 Days #10 tab Saccharomyces boulardii [Florastor] 250 mg PO DAILY 10 Days #10 cap Home Medications: Medication Instructions Recorded Confirmed Type Amoxicillin/Potassium Clav 875 mg PO BID 5 Days #10 tab 06/05/20 Rx [Augmentin] Saccharomyces boulardii [Florastor] 250 mg PO DAILY 10 Days #10 cap 06/05/20 Rx Allergies: No Known Drug Allergies Allergy (Verified 06/03/20 15:39) - Discharge Instructions Discharge Instructions:: You were admitted for a arturo-rectal abscess. You underwent a surgical incision and drainage. You were treated with IV antibiotics. Your vital signs, labs, and pain all greatly improved. You will need to continue wound care at home. A wound care nurse will help instruct you how to care for the area. You will need to take an oral antibiotic, augmentin twice daily for five days. You have also been given a prescription for a pro-biotic called Florastor to help protect the good bacteria in your GI tract. You will follow up in one week with your primary care provider, and will need to re-check your white blood cell count in one week as well. Please return to the emergency room sooner if you develop fever/chills or if you notice increasing pain/drainage. Return to the emergency room for any other new or worsening symptoms. Activity:: Activity as Tolerated Nourishment:: Regular Diet - Follow up Plan Referrals: Roque Velasco DO [Active] - [facility] & [Primary Care Provider] - 7 Days (Will need repeat CBC/BMP in one week. PCP to arrange and follow. ) Disposition: HOME Quality - Care Measures CORE MEASURES:: N/A
[2020-06-05 11:46] VITALS: BP 129/77; TEMP 98.6
--- NOTE | 2020-06-05 14:00 | PQF ---
CLINICAL DOCUMENTATION CLARIFICATION FORM: Tracy Villela PA-C Date: 06/05/20 Please exercise your independent, professional judgment in responding to the clarification form. Clinical indicators are provided on the bottom of this form for your review. Please check appropriate box(es): [ x ] Sepsis due to: peri-rectal abscess [ ] Localized infection without sepsis [ ] SIRS due to non-infectious process (please specify etiology) [ ] with organ dysfunction [ ] without organ dysfunction [ ] Other diagnosis [ ] Unable to determine In addition, please specify: Present on Admission (POA): [ ] Yes [ ] No [ ] Unable to determine For continuity of documentation, please document condition throughout progress notes and discharge summary. Thank You. To be completed by CDI/Coding staff for physician review: CLINICAL INDICATORS - SIGNS / SYMPTOMS / LABS / RESULTS AND LOCATION IN MR ER NOTE: "SEPSIS" PULSE 105 RR 24 TEMP 99.9 WBC 06/02: 17.9 WBC 06/03: 18.3 RISK FACTORS / RESULTS AND LOCATION IN MR RISKS: PERIRECTAL ABSCESS (H&P) TREATMENTS / RESULTS AND LOCATION IN MR TREATMENT: IV VANCOMYCIN (ER) IV CEFEPIME (ER) IV ZOSYN (06/03-06/05) I&D (06/03) CDS Signature: Margie Quintana RN Phone #: [phone] Date: 06/05/20 This is a permanent part of the Medical Record [facility]
[2020-06-05] MEDS ORDERED: Ibuprofen 600 MG TAB PO SCH (15:00)
[2020-06-05] MEDS ORDERED: Amoxicillin/Potassium Clav 875 MG TAB PO SCH (21:00)
== END 2020-06-05 11:55 | disposition home or self-care (01) | DRG 854 ==
LOC: ERS 12:18 → SURG A 21:21
PROVIDERS: ADMIT Internal Medicine; ATTEND Hospitalist
PROC: 0D9P0ZZ Drainage of Rectum, Open Approach (ICD-10-PCS; principal; 2020-06-03)
DX: A41.9 Sepsis, unspecified organism (principal); K61.1 Rectal abscess; K62.5 Hemorrhage of anus and rectum; F17.210 Nicotine dependence, cigarettes, uncomplicated; Z20.828 Contact with and (suspected) exposure to other viral communicable diseases
CPT/HCPCS: 36415; 71045; 74177; 80048; 80053; 81003; 83605; 83735; 84100; 85025; 87040; 87070; 87077; 87186; 87205; 87635; 93005; 96365; 96366; 96367; 96375; 96376; J0171; J0692; J1100; J1885; J2250; J2270; J2405; J2543; J2704; J3010; J3370; J3490; Q9967; S0020; U0003

== ENCOUNTER 2021-10-25 06:38 | Emergency (ER) | payer BC, SELFPAY ==
[2021-10-25] MEDS ORDERED: Bicillin LA 1.2 MILLION UNITS/2 ML SYRINGE ONE (07:26)
[2021-10-25] MEDS ORDERED: Dexamethasone 10 MG/ML VIAL ONE (07:26)
== END 2021-10-25 08:10 | disposition home or self-care (01) ==
LOC: ERS 06:38
DX: J02.9 Acute pharyngitis, unspecified (principal); F17.210 Nicotine dependence, cigarettes, uncomplicated
CPT/HCPCS: 96372; 99283; J0561; J1100

== ENCOUNTER 2023-05-12 06:30 | Emergency (ER) | payer BC, SELFPAY ==
[2023-05-12] MEDS ORDERED: Ketorolac Tromethamine 30 MG/ML VIAL ONE (07:00)
[2023-05-12 07:12] LABS: #Neutrophils 10.6 thou/uL (1.40-6.50); %Basophils 0.3 % (0.0-1.0); %Eosinophils 0.2 % (0.0-10.0); %Lymphocytes 16.1 % (21.0-51.0); %Monocytes 6.9 % (0.0-10.0); %Neutrophils 76.1 % (42.0-75.0); Hematocrit 41.9 % (42.0-52.0); Hemoglobin 14.2 g/dL (14.0-18.0); Mean Corpuscular HGB CONC 33.9 g/dL (32.0-36.0); Mean Corpuscular Hemoglobin 30.5 pg (27.0-31.0); Mean Corpuscular Volume 89.9 fl (78.0-98.0); Mean Platelet Volume 9.9 fL (7.4-10.4); Platelet Count 319 10x3/uL (130-400); RBC Distribution Width 13.3 % (11.5-14.5); Red Blood Cell (RBC) Count 4.66 mill/uL (4.70-6.10); White Blood Cell (WBC) Count 13.9 10x3/uL (4.8-10.8)
[2023-05-12 07:34] LABS: ALT (SGPT) 36 U/L (8-55); AST (SGOT) 25 U/L (5-34); Albumin 4.5 g/dL (3.5-5.0); Alkaline Phosphatase 66 U/L (40-110); Anion Gap 13 mmol/L (10-20); BUN (Urea Nitrogen) 12 mg/dL (8.9-20.6); Bilirubin, Total 0.4 mg/dL (0.2-1.2); Calc. Creatinine Clearance 0 mL/min (70-130); Calcium 9.8 mg/dL (7.8-10.44); Carbon Dioxide 25 mmol/L (22-29); Chloride 103 mmol/L (98-107); Estimated GFR 107; Globulin 3.3 g/dL (2.4-3.5); Glucose 164 mg/dL (70-105); Potassium 4.1 mmol/L (3.5-5.1); Protein, Total 7.8 g/dL (6.0-8.3); Sodium 137 mmol/L (136-145)
[2023-05-12] MEDS ORDERED: Bupivacaine PF 0.5% 30 ML VIAL ONE (08:54)
[2023-05-12] MEDS ORDERED: Lidocaine 1% w/Epinephrine 1:100K 20 ML VIAL ONE (08:54)
[2023-05-12] MEDS ORDERED: Iopamidol-370 76% 500 ML MDV (1 ML CHARGE) ONE (09:56)
== END 2023-05-12 10:22 | disposition home or self-care (01) ==
LOC: ERS 06:30
DX: K61.1 Rectal abscess (principal)
CPT/HCPCS: 46040; 74177; 80053; 83605; 85025; 87040; 96374; J1885; Q9967; S0020

== ENCOUNTER 2024-09-04 08:23 | Emergency (ER) | payer BC, SELFPAY ==
[2024-09-04] MEDS ORDERED: Lidocaine 1% (PF) 30 ML VIAL ONE (08:31)
[2024-09-05 03:02] LABS: #Basophils 0.05 10x3/uL (0.0-0.2); %Basophils 0.4 % (0.0-1.0); %Eosinophils 0.6 % (0.0-10.0); %Lymphocytes 18.5 % (21.0-51.0); %Monocytes 9.5 % (0.0-10.0); %Neutrophils 70.6 % (42.0-75.0); Hematocrit 41.4 % (42.0-52.0); Hemoglobin 13.6 g/dL (14.0-18.0); Mean Corpuscular HGB CONC 32.9 g/dL (32.0-36.0); Mean Corpuscular Hemoglobin 29.4 pg (27.0-31.0); Mean Corpuscular Volume 89.4 fL (78.0-98.0); Mean Platelet Volume 9.6 fL (7.4-10.4); Platelet Count 330 10x3/uL (130-400); RBC Distribution Width 13.4 % (11.5-14.5); Red Blood Cell (RBC) Count 4.63 mill/uL (4.70-6.10)
[2024-09-05 03:22] LABS: ALT (SGPT) 68 U/L (Less than 45); AST (SGOT) 56 U/L (11-34); Albumin 3.7 g/dL (3.1-4.5); Alkaline Phosphatase 74 U/L (40-110); Anion Gap 14 mmol/L (10-20); BUN (Urea Nitrogen) 9 mg/dL (8.9-20.6); Bilirubin, Total 0.4 mg/dL (0.3-1.2); Calc. Creatinine Clearance 0 mL/min (70-130); Calcium 9.1 mg/dL (7.8-10.44); Carbon Dioxide 20 mmol/L (22-29); Chloride 107 mmol/L (98-107); Estimated GFR 107; Globulin 4.2 g/dL (2.4-3.5); Glucose 117 mg/dL (70-105); Protein, Total 7.9 g/dL (6.0-8.3); Sodium 137 mmol/L (136-145)
== END 2024-09-04 08:55 | disposition home or self-care (01) ==
LOC: ERS 08:23
DX: L05.01 Pilonidal cyst with abscess (principal); Z55.6 Problems related to health literacy
CPT/HCPCS: 10080; 80053; 83605; 85025